=== PATIENT | male | born 1955 | race Caucasian/White ===

== ENCOUNTER 2017-10-17 10:52 | Emergency (ER) | payer OTHER ==
[~2017-10-17] VITALS: Ht 177.8 cm; Wt 118.0 kg
[2017-10-17 11:31] LABS: HEMATOCRIT 42.9 % (39.0-50.0); HEMOGLOBIN 14.7 g/dl (14.0-18.0); IMMATURE GRANULOCYTES 0.2 % (0.0-1.0); MEAN CORPUSCULAR HGB 29.5 pG CALC (26.0-32.0); MEAN CORPUSCULAR HGB CONC 34.3 g/L CALC (32.0-36.0); NEUT# 2.99 thou/uL (1.82-7.42); RED BLOOD COUNT 4.99 mill/uL (4.70-6.10); RED CELL DISTRI WIDTH 13.8 % (11.5-15.5)
[2017-10-17 11:50] LABS: ALBUMIN 4.4 g/dL (3.2-5.0); ALKALINE PHOSPHATASE 77 u/l (38-126); ANION GAP 13 (6-22 (CALC)); BILIRUBIN, TOTAL 0.8 mg/dL (0.0-1.4); BUN 14 mg/dL (8-23); BUN/CREATININE RATIO 18 (12-20 (CALC)); CARBON DIOXIDE 26 mmol/l (22-30); CHLORIDE 101 mmol/l (95-108); CREATININE 0.7 mg/dL (0.7-1.3); GFR > 60 ML/MIN (>=60 (CALC)); GFR FOR AFR.AMER. > 60 ML/MIN (>=60 (CALC)); LIPASE 57 u/l (23-300); POTASSIUM 3.2 mmol/l (3.5-5.1); SGOT/AST 75 u/l (19-48); SGPT/ALT 91 u/l (11-66); SODIUM 137 mmol/l (137-146); TOTAL PROTEIN 7.4 g/dL (6.3-8.2)
[2017-10-17] MEDS ORDERED: METFORMIN HCL500 M1 PO (12:03)
[2017-10-17] MEDS ORDERED: LISINOP/HCTZ1 TA2 PO (12:04)
[2017-10-17] MEDS ORDERED: BUDEPRION100 MG PO (12:04)
[2017-10-17] MEDS ORDERED: LOVASTATIN40 M1 PO (12:04)
[2017-10-17] MEDS ORDERED: GABAPENTIN300 M2 (12:04)
[2017-10-17] MEDS ORDERED: LEVOTHYROXIN75 MC1 PO (12:04)
[2017-10-17] MEDS ORDERED: HYDROXYZ HCL25 MG PO (12:05)
[2017-10-17] MEDS ORDERED: HYDROCORT PO (12:05)
[2017-10-17] MEDS ORDERED: ALLERGY RE50 MCG/ACT (12:06)
[2017-10-17] MEDS ORDERED: PROTONIX40 MG PO (12:56)
[2017-10-17 13:46] VITALS: BP 104/57
== END 2017-10-17 13:28 | disposition home or self-care (01) | DRG 313 ==
LOC: ED 10:52
PROVIDERS: Emergency Medicine
DX: R07.89 Other chest pain (principal); I10 Essential (primary) hypertension; E11.9 Type 2 diabetes mellitus without complications; E07.9 Disorder of thyroid, unspecified

== ENCOUNTER 2020-02-23 18:47 | Emergency (ER) | payer MEDICARE, OTHER ==
[~2020-02-23] VITALS: Ht 177.8 cm; Wt 119.1 kg
[~2020-02-23 18:47] MED LIST: ALLERGY RE50 MCG/ACT; BUDEPRION100 MG PO; GABAPENTIN300 M2; HYDROCORT PO; HYDROXYZ HCL25 MG PO; LEVOTHYROXIN75 MC1 PO; LISINOP/HCTZ1 TA2 PO; LOVASTATIN40 M1 PO; METFORMIN HCL500 M1 PO; PROTONIX40 MG PO
[2020-02-23] MEDS ORDERED: HYDROCO/APAP1 TA9 PO (20:39)
[2020-02-23] MEDS ORDERED: CLEOCIN300 MG PO (20:39)
[2020-02-23 20:55] VITALS: BP 142/80
== END 2020-02-23 20:57 | disposition home or self-care (01) ==
LOC: ED 18:47
DX: K02.9 Dental caries, unspecified (principal); E11.9 Type 2 diabetes mellitus without complications; I10 Essential (primary) hypertension; Z95.5 Presence of coronary angioplasty implant and graft; Z79.84 Long term (current) use of oral hypoglycemic drugs

== ENCOUNTER 2020-05-06 12:11 | Inpatient (IN) | payer MEDICARE, OTHER ==
[~2020-05-06] VITALS: Ht 177.8 cm; Wt 74.0 kg
[~2020-05-06 12:11] MED LIST changes: +CLEOCIN300 MG PO; +HYDROCO/APAP1 TA9 PO
[2020-05-06 14:53] LABS: HEMATOCRIT 42.1 % (39.0-50.0); HEMOGLOBIN 13.8 g/dl (14.0-18.0); IMMATURE GRANULOCYTES 1.9 % (0.0-5.0); MEAN CELL VOLUME 89.4 fL CALC (80.0-100.0); MEAN CORPUSCULAR HGB 29.3 pG CALC (26.0-32.0); MEAN CORPUSCULAR HGB CONC 32.8 g/dL CAL (32.0-36.0); NEUT# 5.89 thou/uL (1.82-7.42); RED BLOOD COUNT 4.71 mill/uL (4.70-6.10); RED CELL DISTRI WIDTH 13.9 % (11.5-15.5)
[2020-05-06 15:10] LABS: ALBUMIN 3.9 g/dL (3.2-5.0); ALKALINE PHOSPHATASE 73 u/l (38-126); ANION GAP 13 (6-22 (CALC)); BILIRUBIN, TOTAL 0.9 mg/dL (0.0-1.4); BUN 21 mg/dL (8-23); BUN/CREATININE RATIO 22 (12-20 (CALC)); CARBON DIOXIDE 25 mmol/l (22-30); CHLORIDE 99 mmol/l (95-108); GFR > 60 ML/MIN (>=60 (CALC)); GFR FOR AFR.AMER. > 60 ML/MIN (>=60 (CALC)); POTASSIUM 3.7 mmol/l (3.5-5.1); SGOT/AST 69 u/l (19-48); SODIUM 133 mmol/l (137-146)
[2020-05-06 15:19] LABS: MYOGLOBIN 338 ng/mL (0 - 121)
[2020-05-06 15:27] LABS: URINE BLOOD DIPSTICK MODERATE (NEGATIVE); URINE COLOR YELLOW; URINE GLUCOSE - DIPSTICK NEGATIVE (NEGATIVE); URINE KETONE TRACE mg/dL (NEGATIVE); URINE LEUK ESTERASE NEGATIVE (NEGATIVE); URINE NITRITE - DIPSTICK NEGATIVE (Negative); URINE PH 5.5 (4.5-8.0); URINE PROTEIN - DIPSTICK 30 mg/dL (NEG-TRACE); URINE SPECIFIC GRAVITY >=1.030; URINE UROBILINOGEN - DIPSTICK 0.2 E.U./dL (0.2)
[2020-05-06 15:37] LABS: URINE BILIRUBIN - DIPSTICK SMALL (NEGATIVE)
[2020-05-06 15:38] LABS: URINE EPITHELIAL CELLS FEW EPI/hpf (0-FEW); URINE MUCUS FEW hpf (NONE-FEW)
[2020-05-06 17:07] LABS: TSH, 3RD GENERATION 0.23 uIU/mL (0.47 - 4.68)
[2020-05-06 22:10] VITALS: BP 159/84
[2020-05-06 23:40] VITALS: BP 155/79
[2020-05-07 05:00] VITALS: BP 160/77
[2020-05-07 07:09] LABS: HEMATOCRIT 41.6 % (39.0-50.0); HEMOGLOBIN 13.6 g/dl (14.0-18.0); IMMATURE GRANULOCYTES 1.8 % (0.0-5.0); MEAN CELL VOLUME 89.3 fL CALC (80.0-100.0); MEAN CORPUSCULAR HGB 29.2 pG CALC (26.0-32.0); MEAN CORPUSCULAR HGB CONC 32.7 g/dL CAL (32.0-36.0); NEUT# 5.69 thou/uL (1.82-7.42); RED BLOOD COUNT 4.66 mill/uL (4.70-6.10); RED CELL DISTRI WIDTH 14.2 % (11.5-15.5)
[2020-05-07 07:32] LABS: ALBUMIN 3.4 g/dL (3.2-5.0); ALKALINE PHOSPHATASE 85 u/l (38-126); ANION GAP 12 (6-22 (CALC)); BILIRUBIN, TOTAL 0.7 mg/dL (0.0-1.4); BUN 20 mg/dL (8-23); BUN/CREATININE RATIO 24 (12-20 (CALC)); CARBON DIOXIDE 25 mmol/l (22-30); CHLORIDE 100 mmol/l (95-108); CREATININE 0.8 mg/dL (0.7-1.3); GFR > 60 ML/MIN (>=60 (CALC)); GFR FOR AFR.AMER. > 60 ML/MIN (>=60 (CALC)); POTASSIUM 4.2 mmol/l (3.5-5.1); SGOT/AST 82 u/l (19-48); SODIUM 133 mmol/l (137-146)
[2020-05-07 08:15] VITALS: BP 133/82
[2020-05-07 08:31] LABS: C-REACTIVE PROTEIN 16.1 mg/dL (0-0.9)
[2020-05-07] MEDS ORDERED: CARVEDILOL3.125 MG PO (09:19)
[2020-05-07] MEDS ORDERED: FLONASE AL50 MCG/ACT (09:34)
[2020-05-07] MEDS ORDERED: HYDROCORTISONE20 MG PO (09:37)
[2020-05-07] MEDS ORDERED: METFORMIN500 M2 PO (09:38)
[2020-05-07] MEDS ORDERED: BUPROPION100 MG PO (09:38)
[2020-05-07] MEDS ORDERED: HYDROXYZ HCL25 MG PO (09:39)
[2020-05-07] MEDS ORDERED: CLOPIDOGREL75 MG PO (09:39)
[2020-05-07] MEDS ORDERED: NEURONTIN300 MG PO (09:40)
[2020-05-07] MEDS ORDERED: LOVASTATIN40 M1 PO (09:40)
[2020-05-07] MEDS ORDERED: LEVOTHYROXIN25 MC1 PO (09:40)
[2020-05-07] MEDS ORDERED: LISINOPRIL20 MG PO (09:41)
[2020-05-07 10:30] VITALS: BP 118/80
[2020-05-07 15:00] VITALS: BP 130/81
[2020-05-07 20:00] VITALS: BP 123/65; BP 125/81
[2020-05-08 00:10] VITALS: BP 124/81
[2020-05-08 03:50] VITALS: BP 150/75
[2020-05-08 04:59] LABS: HEMATOCRIT 38.6 % (39.0-50.0); IMMATURE GRANULOCYTES 1.1 % (0.0-5.0); MEAN CELL VOLUME 87.9 fL CALC (80.0-100.0); MEAN CORPUSCULAR HGB 29.6 pG CALC (26.0-32.0); MEAN CORPUSCULAR HGB CONC 33.7 g/dL CAL (32.0-36.0); NEUT# 7.98 thou/uL (1.82-7.42); RED BLOOD COUNT 4.39 mill/uL (4.70-6.10); RED CELL DISTRI WIDTH 13.7 % (11.5-15.5)
[2020-05-08 05:18] LABS: ALKALINE PHOSPHATASE 71 u/l (38-126); ANION GAP 9 (6-22 (CALC)); BILIRUBIN, TOTAL 0.5 mg/dL (0.0-1.4); BUN 18 mg/dL (8-23); BUN/CREATININE RATIO 27 (12-20 (CALC)); CARBON DIOXIDE 25 mmol/l (22-30); CHLORIDE 106 mmol/l (95-108); CREATININE 0.7 mg/dL (0.7-1.3); GFR > 60 ML/MIN (>=60 (CALC)); GFR FOR AFR.AMER. > 60 ML/MIN (>=60 (CALC)); POTASSIUM 4.2 mmol/l (3.5-5.1); SGOT/AST 37 u/l (19-48); SODIUM 136 mmol/l (137-146); TOTAL PROTEIN 5.5 g/dL (6.3-8.2)
[2020-05-08 08:30] VITALS: BP 138/74
[2020-05-08 11:30] VITALS: BP 140/79
[2020-05-08 16:43] VITALS: BP 128/81
[2020-05-08 19:00] VITALS: BP 132/78
[2020-05-09] VITALS: BP 136/63
[2020-05-09 04:00] VITALS: BP 118/61
[2020-05-09 08:19] VITALS: BP 136/74
[2020-05-09 08:51] LABS: HEMATOCRIT 38.1 % (39.0-50.0); HEMOGLOBIN 12.7 g/dl (14.0-18.0); IMMATURE GRANULOCYTES 1.5 % (0.0-5.0); MEAN CELL VOLUME 88.8 fL CALC (80.0-100.0); MEAN CORPUSCULAR HGB 29.6 pG CALC (26.0-32.0); MEAN CORPUSCULAR HGB CONC 33.3 g/dL CAL (32.0-36.0); NEUT# 10.4 thou/uL (1.82-7.42); RED BLOOD COUNT 4.29 mill/uL (4.70-6.10); RED CELL DISTRI WIDTH 14.1 % (11.5-15.5)
[2020-05-09 09:23] LABS: ALBUMIN 3.1 g/dL (3.2-5.0); ALKALINE PHOSPHATASE 66 u/l (38-126); ANION GAP 9 (6-22 (CALC)); BILIRUBIN, TOTAL 0.5 mg/dL (0.0-1.4); BUN 20 mg/dL (8-23); BUN/CREATININE RATIO 29 (12-20 (CALC)); C-REACTIVE PROTEIN 3.6 mg/dL (0-0.9); CARBON DIOXIDE 26 mmol/l (22-30); CHLORIDE 104 mmol/l (95-108); CREATININE 0.7 mg/dL (0.7-1.3); GFR > 60 ML/MIN (>=60 (CALC)); GFR FOR AFR.AMER. > 60 ML/MIN (>=60 (CALC)); POTASSIUM 4.2 mmol/l (3.5-5.1); SGOT/AST 38 u/l (19-48); SODIUM 135 mmol/l (137-146); TOTAL PROTEIN 5.5 g/dL (6.3-8.2)
[2020-05-09 10:50] VITALS: BP 140/62
[2020-05-09 14:55] VITALS: BP 103/64
[2020-05-09 19:00] VITALS: BP 132/74
[2020-05-10] VITALS: BP 124/64
[2020-05-10 04:00] VITALS: BP 124/63
[2020-05-10 08:25] VITALS: BP 120/60
[2020-05-10] MEDS ORDERED: DEXAMETHASON6 MG PO (10:49)
[2020-05-10] MEDS ORDERED: ZITHROMAX500 MG PO (10:49)
[2020-05-10 11:28] VITALS: BP 135/72
== END 2020-05-10 14:10 | disposition home or self-care (01) | DRG 177 ==
LOC: ED 12:11 → ED-I 20:41 → ED 20:50 → MS2 20:51
PROVIDERS: Emergency Medicine; Nurse Practitioner Family; ADMIT Internal Medicine; ATTEND Internal Medicine
PROC: 02HV33Z Insertion of Infusion Device into Superior Vena Cava, Percutaneous Approach (ICD-10-PCS; principal; 2020-05-06)
DX: U07.1 COVID-19 (principal); J12.82 Pneumonia due to coronavirus disease 2019; J96.01 Acute respiratory failure with hypoxia; G93.40 Encephalopathy, unspecified; E87.1 Hypo-osmolality and hyponatremia; E86.0 Dehydration; R55 Syncope and collapse; I25.10 Atherosclerotic heart disease of native coronary artery without angina pectoris; I10 Essential (primary) hypertension; E11.9 Type 2 diabetes mellitus without complications; E03.9 Hypothyroidism, unspecified; F40.240 Claustrophobia; J32.0 Chronic maxillary sinusitis; E66.01 Morbid (severe) obesity due to excess calories; Z79.01 Long term (current) use of anticoagulants; Z79.84 Long term (current) use of oral hypoglycemic drugs; Z79.51 Long term (current) use of inhaled steroids; Z79.899 Other long term (current) drug therapy; Z88.8 Allergy status to other drugs, medicaments and biological substances; Z95.5 Presence of coronary angioplasty implant and graft
CPT/HCPCS: J1650; Q9967